=== PATIENT | male | born 1940 | race Caucasian/White ===

== ENCOUNTER → 2021-02-12 | Outpatient (CLI) | payer MEDICARE, MEDICAID ==
[~2021-02-12] MED LIST: ACETYLCHOLINE CHLORIDE INTRAOCULAR SOLUTION 1:100 ELECTROLYTE DILUENT IO ONE; ATOR20TA65 MT; BALANCED SALT IRRIG SOLN 15ML ONE; BUPIVACAINE HCL/PF 0.75% (7.5MG/ML) 10ML ONE; CIPROFLOXACIN 0.3% OPHTH SOLN 2.5ML ONE; FENTANYL CITRATE/PF 50MCG/ML 2ML VIAL ONE; FINA5TAB11 MT; GENTAMICIN SULF 40MG/ML 2ML VIAL ONE; INSLIS SUBCUT; INSU300I SQ; LEVO100T9 MT; LIDOCAINE HCL 1% 10 MG/ML 10ML VIAL ONE; LIDOCAINE HCL 2%/EPINEPHRINE 1:100,000 20 ML VIAL INFIL ONE; LIDOCAINE HCL/PF 2% 20 MG/ML 10ML VIAL ONE; METF-414 MT; MIDAZOLAM HCL 2 MG/2 ML VIAL ONE; NEO/POLYMYX B SULF/DEXAMETH OPHTH OINT 3.5GM ONE; PHENYLEPHRINE HCL 2.5% OPHTH DROPS 2ML ONE; PREDNISOLONE ACETATE 1% OPHTH DROPS 5ML ONE; PROPOFOL 200MG/20ML VIAL IV ONE; TETRACAINE 0.5% OPHTH DROPS 4ML ONE; XALAO EACHEYE
== END | disposition home or self-care (01) ==
LOC: LAB 12:19
PROVIDERS: ATTEND Ophthalmology
DX: Z01.812 Encounter for preprocedural laboratory examination (principal); Z20.822 Contact with and (suspected) exposure to COVID-19
CPT/HCPCS: 87426

== ENCOUNTER 2021-02-13 07:07 | Day surgery (SDC) | payer MEDICARE, MEDICAID ==
[~2021-02-13] VITALS: Ht 162.6 cm; Wt 78.9 kg
[2021-02-13] MEDS ORDERED: SODIUM CHLORIDE 0.9% 1,000 ML IV SCH (07:30)
[2021-02-13] MEDS ORDERED: METF-414 MT (09:31)
[2021-02-13] MEDS ORDERED: INSLIS SUBCUT (09:31)
[2021-02-13] MEDS ORDERED: LEVO100T9 MT (09:31)
[2021-02-13] MEDS ORDERED: ATOR20TA65 MT (09:31)
[2021-02-13] MEDS ORDERED: INSU300I SQ (09:31)
[2021-02-13] MEDS ORDERED: XALAO EACHEYE (09:31)
[2021-02-13] MEDS ORDERED: FINA5TAB11 MT (09:31)
[2021-02-13] MEDS ORDERED: ACETAMINOPHEN 325MG TABLET PO PRN (10:45)
== END 2021-02-13 11:04 | disposition home or self-care (01) ==
LOC: OR 07:07
PROVIDERS: ATTEND Ophthalmology
DX: H40.1120 Primary open-angle glaucoma, left eye, stage unspecified (principal); E11.3392 Type 2 diabetes mellitus with moderate nonproliferative diabetic retinopathy without macular edema, left eye; I10 Essential (primary) hypertension; E78.2 Mixed hyperlipidemia; E03.9 Hypothyroidism, unspecified; N40.1 Benign prostatic hyperplasia with lower urinary tract symptoms; Z79.4 Long term (current) use of insulin; Z79.899 Other long term (current) drug therapy; Z98.890 Other specified postprocedural states
CPT/HCPCS: 66170; 82962; 93005; J1580; J2250; J2704; J3010; J3490